=== PATIENT | male | born 1935 | race Caucasian/White ===

== ENCOUNTER 2018-03-31 10:58 | Day surgery (SDC) | payer OTHER ==
--- OUTSIDE RECORDS SUMMARY | 2018-03-31 11:00 | XMS REPORT ---
:1935 [facility] Address [address] [place] [address] Dr. Nguyễn [address] [place] [id number] Care Team Providers Name Role Phone Unavailable Unavailable Unavailable Problems This patient has no known problems. Allergies, Adverse Reactions, Alerts This patient has no known allergies or adverse reactions. Medications This patient has no known medications.
[2018-03-31] MEDS ORDERED: FENTANYL CITR 100 MCG/2 ML ONE (11:35)
[2018-03-31] MEDS ORDERED: LIDOCAINE 1% MPF 5 ML VIAL ONE (11:36)
[2018-03-31] MEDS ORDERED: ONDANSETRON HCL 40 MG/20 ML VIAL ONE (11:36)
[2018-03-31] MEDS ORDERED: PROPOFOL 200 MG/20 ML VIAL IV ONE (11:36)
[2018-03-31] MEDS ORDERED: NA CHLORIDE 0.9% 1,000 ML ONE (11:42)
[2018-03-31] MEDS ORDERED: GENTAMICIN 100 MG/100 ML BAG 100 MG/100 ML BAG IV ONE (11:42)
[2018-03-31] MEDS ORDERED: GLYCOPYRROLATE 0.2 MG/ML SYR ONE ×2 (12:44→12:55)
[2018-03-31] MEDS ORDERED: EPHEDRINE SULF 50 MG/10 ML SYR ONE (12:56)
[2018-03-31] MEDS ORDERED: OXYBUTYNIN CHLORIDE 5 MG TAB ONE (14:44)
[2018-03-31 15:22] VITALS: TEMP 97
[2018-03-31 15:24] VITALS: BP 160/72; O2SAT 96
== END 2018-03-31 14:50 | disposition home or self-care (01) ==
LOC: OR 10:58
PROVIDERS: ATTEND Urology
PROC: 0VT08ZZ Resection of Prostate, Via Natural or Artificial Opening Endoscopic (ICD-10-PCS; principal; 2018-03-31 12:00)
DX: N40.1 Benign prostatic hyperplasia with lower urinary tract symptoms (principal); R33.9 Retention of urine, unspecified; N42.9 Disorder of prostate, unspecified; R97.20 Elevated prostate specific antigen [PSA]; C67.2 Malignant neoplasm of lateral wall of bladder; E11.9 Type 2 diabetes mellitus without complications; I10 Essential (primary) hypertension; K21.9 Gastro-esophageal reflux disease without esophagitis; E78.5 Hyperlipidemia, unspecified; I25.10 Atherosclerotic heart disease of native coronary artery without angina pectoris; I49.9 Cardiac arrhythmia, unspecified; G47.33 Obstructive sleep apnea (adult) (pediatric); F03.90 Unspecified dementia, unspecified severity, without behavioral disturbance, psychotic disturbance, mood disturbance, and anxiety; I25.2 Old myocardial infarction; E66.9 Obesity, unspecified; Z68.24 Body mass index [BMI] 24.0-24.9, adult; Z79.02 Long term (current) use of antithrombotics/antiplatelets; Z95.1 Presence of aortocoronary bypass graft; Z87.891 Personal history of nicotine dependence; Z80.0 Family history of malignant neoplasm of digestive organs
CPT/HCPCS: 52601; 82962 ×2; 88305; J1580; J2405; J2704; J3010; J7030